=== PATIENT | female | born 1970 | race Caucasian/White ===

== ENCOUNTER 2024-03-25 08:45 | Emergency (ER) | payer MEDICAID ==
[~2024-03-25] VITALS: Ht 152.4 cm; Wt 56.7 kg
[2024-03-25 09:11] VITALS: BP 105/70; PULSE 82; RESP 18; TEMP 98; O2SAT 99
[2024-03-25] MEDS: ACETAMINOPHEN EXTRA STRENGTH 500 MG TAB PO ONE (09:45)
[2024-03-25 10:54] VITALS: BP 105/60; PULSE 58; RESP 18; O2SAT 99
== END 2024-03-25 10:54 | disposition home or self-care (01) ==
LOC: MED 08:45
DX: S06.0X0A Concussion without loss of consciousness, initial encounter (principal); W22.8XXA Striking against or struck by other objects, initial encounter; Y92.89 Other specified places as the place of occurrence of the external cause; Y93.89 Activity, other specified; Y99.8 Other external cause status
CPT/HCPCS: 70450; 90471; 90715; 99285